=== PATIENT | female | born 1980 | race Caucasian/White ===

== ENCOUNTER 2018-05-11 11:32 | Emergency (ER) | payer MEDICAID | END 2018-05-11 13:33 | disposition left against medical advice (07) | LOC: ER 11:33 | DX: R04.0 Epistaxis (principal); Z53.21 Procedure and treatment not carried out due to patient leaving prior to being seen by health care provider ==

== ENCOUNTER 2024-01-10 17:45 | Emergency (ER) | payer MEDICAID ==
[~2024-01-10] VITALS: Ht 170.2 cm; Wt 160.3 kg
[2024-01-10 18:11] VITALS: BP 160/99; PULSE 104; RESP 16; O2SAT 95
[2024-01-10] MEDS ORDERED: HYDR-3965 PO (18:22)
[2024-01-10] MEDS: HYDROcodone/acetaminophen 5mg/325mg tablet PO ONE (18:58)
[2024-01-10 19:06] VITALS: TEMP 97.6
== END 2024-01-10 19:07 | disposition home or self-care (01) ==
LOC: ER 17:46
DX: K08.89 Other specified disorders of teeth and supporting structures (principal); K02.9 Dental caries, unspecified
CPT/HCPCS: 99283

== ENCOUNTER 2025-01-03 16:49 | Emergency (ER) | payer MEDICAID ==
[~2025-01-03] VITALS: Ht 170.2 cm; Wt 163.1 kg
[2025-01-03 16:53] VITALS: BP 168/77; PULSE 90; RESP 16; TEMP 97.1; O2SAT 100
[2025-01-03] MEDS ORDERED: AMOX-100 PO (16:57)
[2025-01-03] MEDS ORDERED: IBUP-864 PO (16:57)
--- NOTE | 2025-01-03 16:58 | Physician Documentation ---
HPI ~ General Stated Complaint: MOUTH PAIN Time Seen by MD: 16:54 Primary Medical Doctor: Mala at [facility] Source: patient Mode of Arrival: POV Exam Limitations: no limitations History of Present Illness HPI Comment 44-year-old female with a dental appointment in 2 weeks is complaining of increased pain and possible infection no obvious abscesses. Requesting antibiotics prior to dental appointment and ibuprofen. No fevers Medication Reconciliation Allergies: Coded Allergies: No Known Allergies (Unverified , 01/10/24) Past Medical History Past Medical History: No Pertinent History Past Surgical History: noncontributory Drug Use: none Lives with: Family Lives In: Home Occupation: employed Review of Systems All Other Systems at this time: Reviewed and Negative ENT: Reports: see HPI Physical Exam Physical Exam General: Alert, no apparent distress. HEENT: moist mucous membranes. Poor dentition no obvious fluctuance or abscess. All back molars decayed multiple caries no trismus Neck: Full range of motion. Respiratory: No respiratory distress speaking in full sentences Chest: No accessory muscle use. Cardiovascular: Appears well perfused Neurologic: Oriented x4. Psychiatric: Normal mood and affect. Skin: Normal color, warm and dry. No edema, no ecchymosis. Medical Decision Making Findings Poor dentition dental caries dental pain likely infection but no abscess. Antibiotics prescribed ibuprofen prescribed patient to maintain appointment in 2 weeks with dentist Departure Time of Disposition: 16:56 Disposition: HOME / SELF CARE / HOMELESS Impression: Primary Impression: Dental infection Additional Impression: Pain, dental Condition: Stable Additional Instructions: Antibiotics as prescribed and follow up with dentist in 2 weeks. Referrals: NO PRIMARY CARE PROVIDER (PCP) Prescriptions Ibuprofen (Ibu) 800 Mg Tablet 1 TAB PO Q8H for 7 Days, #21 TAB 0 Refills Prov: CELSA PORTILLO NP 01/03/25 Amoxicillin Trihydrate (Amoxicillin) 500 Mg Capsule 1 CAP PO Q12H for 14 Days, #28 CAP Prov: CELSA PORTILLO NP 01/03/25 Education Educated: Patient Educated regarding: diagnosis, treatment, need for follow up Signature Scribe Signature: No Scribe Attestation: The note accurately reflects work and decisions made by me.Celsa RUIZ 01/03/25 16:58 CELSA PORTILLO NP Jan 03, 2025 16:58
[2025-01-07] MEDS ORDERED: IBUP-1986 PO (22:42)
== END 2025-01-03 17:28 | disposition home or self-care (01) ==
LOC: ER 16:50
DX: K04.7 Periapical abscess without sinus (principal); K08.89 Other specified disorders of teeth and supporting structures
CPT/HCPCS: 99283

== ENCOUNTER 2025-01-11 08:22 | Emergency (ER) | payer MEDICAID ==
[~2025-01-11] VITALS: Ht 170.2 cm; Wt 165.2 kg
[~2025-01-11 08:22] MED LIST: AMOX-100 PO; IBUP-1986 PO; IBUP-864 PO
--- NOTE | 2025-01-11 09:30 | Physician Documentation ---
HPI ~ General Chief Complaint: Tooth Problem Stated Complaint: TOOTH PAIN Time Seen by MD: 09:15 OK to notify your PCP?: Yes Primary Medical Doctor: Mala at [facility] Source: patient Mode of Arrival: POV Exam Limitations: no limitations History of Present Illness HPI Comment 44-year-old female presents for dental abscess from a broken tooth to the right lower 1st molar. She has been on amoxicillin for the past 7 days with 0 improvement. She has been taking 800 mg ibuprofen multiple times a day as well as Tylenol with 0 relief. She tried a numbing gel as well. This is her 3rd visit to the ER for the same thing. She has plans to get this tooth removed hopefully next week in his willing to drive to either [place] or [place] to get this tooth removed. Medication Reconciliation Allergies: Coded Allergies: No Known Allergies (Unverified , 01/11/25) Scheduled Amoxicillin Trihydrate (Amoxicillin), 1 CAP PO Q12H Ibuprofen (Ibu), 1 TAB PO Q8H Ibuprofen (Ibuprofen), 1 TAB PO Q8H Past Medical History Past Medical History: No Pertinent History Past Surgical History: noncontributory Drug Use: none Lives with: Family Lives In: Home Occupation: employed Review of Systems All Other Systems at this time: Reviewed and Negative Physical Exam Vital Signs: RN Vital Signs have been reviewed: Yes, Temperature: 96.7, Source: Temporal, Heart Rate: 81, Respiratory Rate: 20, BP: 141/68, Pulse Oximetry: 99, Weight: 165.200 Oxygen Flow Rate: 0 Pulse Oximetry Reflects: adequate oxygenation Physical Exam General: Alert, no distress. HEENT: No injection, moist mucous membranes. Posterior pharynx clear. No trismus. Broken tooth with decay and discharge #19 tooth. Erythema at the gum line. Neck: Full range of motion. Respiratory: No respiratory distress, equal chest rise and fall. Chest: No accessory muscle use. Cardiovascular: Regular rate and rhythm. Gastrointestinal: Nondistended. Extremities: Normal range of motion, no deformity. Neurologic: Oriented x4. Psychiatric: Normal mood and affect. Skin: Normal color, warm and dry. Progress Results/Orders Reviewed/noted all lab results: Yes Results/Orders Vital Signs 01/11/25 08:30 Temp 96.7 Pulse 81 Resp 20 B/P (MAP) 141/68 Pulse Ox 99 O2 Flow Rate 0 Medical Decision Making Additional information obtaine: old records Findings She presents for the 3rd time in the past week for her broken tooth abscess. She has been using all medications as prescribed in his had 0 improvement. I will change her antibiotic to clindamycin instead of amoxicillin as there has been no improvement in the infection aspect. For pain relief I will give a 5 day supply of Alb[place] as this should help pulled her over to next week to get this tooth removed. Differential Dx:Considerations: Include: Facial Cellulitis, Periapical abscess, Peridontal abscess, Tooth Fracture, Trigeminal neuralgia, Tooth subluxation Departure Disposition: HOME / SELF CARE / HOMELESS Impression: Primary Impression: Dental abscess Condition: Stable Discharge Instructions: Dental Abscess Additional Instructions: Please continue to follow up with a dentist to get that tooth removed. Return back here for any new or worsening symptoms. Take care not to exceed it 4000 mg of Tylenol within a 24 hour period if you are taking Tylenol and the Albion just keep track of how much her having. Antibiotics as prescribed. Stop taking the amoxicillin and start taking Augmentin. Referrals: NO PRIMARY CARE PROVIDER (PCP) Prescriptions Hydrocodone Bit/Acetaminophen 5/325 MG (Albion 5/325 MG) 5 Mg/325 Mg Tablet 1 TAB PO TID PRN PRN for pain for 5 Days, #15 TAB Prov: PIPER RAMIREZ 01/11/25 Amox Tr/Potassium Clavulanate (Augmentin 875-125 Tablet) 1 Each Tablet 1 TAB PO Q12H for 10 Days, #20 TAB Prov: PIPER RAMIREZ 01/11/25 Education Educated: Patient Educated regarding: diagnosis, treatment, prognosis, need for follow up Additional Comment Medical Screen Exam This patient recieved a medical screening examination. After reviewing the individual's medical complaints with presenting symptoms and performing an appropriate physical examination, it was determined that no immediate life- threatening emergency medical condition is present. This individual is also not a women having contractions. Signature Scribe Signature: . Attestation: Scribed for Piper Ramirez by Piper Monk NP . 01/11/25 09:46 Parts of this note were created using [employer] voice recognition software program. While efforts were made to correct any mistakes made by this voice recognition software program, nonsensical phrases may remain in this note. In addition, there may be errors and syntax, grammar, content and spelling. PIPER RAMIREZ [facility] Jan 11, 2025 09:30
[2025-01-11] MEDS ORDERED: HYDR-3965 PO (09:44)
[2025-01-11] MEDS ORDERED: AMOX-117 PO (09:44)
[2025-01-11 10:01] VITALS: BP 144/82; PULSE 79; RESP 16; TEMP 96.7; O2SAT 99
== END 2025-01-11 10:04 | disposition home or self-care (01) ==
LOC: ER 08:22
DX: K04.7 Periapical abscess without sinus (principal); Z79.899 Other long term (current) drug therapy
CPT/HCPCS: 99283